=== PATIENT | male | born 1960 | race African-American/Black ===

== ENCOUNTER 2025-02-11 11:22 | Inpatient (IN) | payer BC ==
[2025-02-11] VITALS (15 sets, daily range): BP systolic 131–167; BP diastolic 43–108; TEMP 97.6–98.9; O2SAT 94–100
[~2025-02-11] VITALS: Ht 177.8 cm; Wt 80.7 kg
[2025-02-11 11:51] LABS: BASOPHILS # (AUTO) 0.1 K/UL (0.0-0.2); EOSINOPHILS % (AUTO) 0.3 % (0.0-7.0); HEMATOCRIT 53.2 % (36.7-47.1); HEMOGLOBIN 17.9 g/dL (12.5-16.3); LYMPHOCYTES # (AUTO) 1.1 K/uL (0.8-4.8); LYMPHOCYTES % (AUTO) 12.7 % (20.5-51.5); MEAN CORPUSCULAR HGB CONC 34 g/dL (32.5-36.3); MONOCYTES # (AUTO) 0.7 K/uL (0.1-1.30); MONOCYTES % (AUTO) 8.4 % (0.0-11.0); NEUTROPHILS # (AUTO) 6.9 K/uL (1.8-8.9); NEUTROPHILS % (AUTO) 77.6 % (38.5-71.5); PLATELET COUNT (AUTO) 132 K/uL (152-348); RED BLOOD CELL COUNT(AUTO) 5.61 MIL/uL (4.06-5.63); RED CELL DISTRIBUTION WIDTH 12.7 % (12.1-16.2); WHITE BLOOD COUNT (AUTO) 8.8 K/uL (3.6-10.2)
[2025-02-11] MEDS ORDERED: IV NORMAL SALINE 250 ML IV ONE (11:51)
[2025-02-11] MEDS ORDERED: SWABABLE VALVE TRANSFER SET EA MC ONE (11:51)
[2025-02-11] MEDS ORDERED: IOHEXOL 350 100 ML INFUS..BTL ONE (11:51)
[2025-02-11 12:01] LABS: CALCIUM 9.4 mg/dL (8.5-10.1); CARBON DIOXIDE 25 mmol/L (21-32); CHLORIDE 106 mmol/L (98-107); CREATININE 1.5 mg/dL (0.6-1.3); SODIUM SERUM 142 mmol/L (136-145); UREA NITROGEN, BLOOD 27 mg/dL (7-18)
[2025-02-11] MEDS ORDERED: diphenhydrAMINE 50 MG/1 ML VIAL ONE (12:02)
[2025-02-11] MEDS ORDERED: DEXAMETHASONE SOD PHOSPHATE 4 MG INJ ONE (12:02)
[2025-02-11] MEDS ORDERED: METOCLOPRAMIDE HCL 10 MG/2 ML VIAL ONE (12:02)
[2025-02-11] MEDS ORDERED: ACETAMINOPHEN 500 MG TABLET ONE (12:02)
[2025-02-11] MEDS: diphenhydrAMINE 50 MG/1 ML VIAL IV ONE (12:10)
[2025-02-11] MEDS: DEXAMETHASONE SOD PHOSPHATE 4 MG INJ IV ONE (12:11)
[2025-02-11] MEDS: ACETAMINOPHEN 500 MG TABLET PO ONE (12:11)
[2025-02-11] MEDS: METOCLOPRAMIDE HCL 10 MG/2 ML VIAL IV ONE (12:11)
[2025-02-11] MEDS: IV NORMAL SALINE 1000 ML BAG IV ONE (12:13)
[2025-02-11 12:32] LABS: GLUCOSE 434 mg/dL (74-106)
[2025-02-11 12:33] LABS: DIFFERENTIAL COMMENT 1
[2025-02-11] MEDS ORDERED: ASPIRIN 81 MG TAB.CHEW ONE (13:12)
[2025-02-11] MEDS ORDERED: CLOPIDOGREL 75 MG TABLET ONE (13:12)
[2025-02-11] MEDS ORDERED: HUM INSULIN NPH/REG INSULIN HM 70/30 1000 UNITS/10 ML VIAL SQ ONE (13:13)
[2025-02-11] MEDS: CLOPIDOGREL 75 MG TABLET PO ONE (13:14)
[2025-02-11] MEDS: ASPIRIN 81 MG TAB.CHEW PO ONE (13:14)
[2025-02-11] MEDS: INSULIN REGULAR, HUMAN 1000 UNIT/10 ML VIAL SQ ONE (13:16)
[2025-02-11] MEDS: CALCIUM GLUCONATE IV 1 GM in IV DEXTROSE 5% 50 ML IV ONE (13:30)
[2025-02-11] MEDS ORDERED: ENOXAPARIN SODIUM 40 MG/0.4 ML DISP.SYRIN SQ ONE (14:15)
[2025-02-11] MEDS ORDERED: MAGNESIUM HYDROXIDE 30 ML LIQUID UDC PO PRN (14:15)
[2025-02-11] MEDS ORDERED: ONDANSETRON 4 MG/2 ML VIAL IV PRN (14:15)
[2025-02-11] MEDS ORDERED: REMEDY ESSENTIAL ZINC PASTE 113 GM TP PRN (14:15)
[2025-02-11] MEDS ORDERED: DEXTROSE 50% 50 ML DISP.SYRIN IV PRN (14:15)
[2025-02-11] MEDS: IV NS 1000 ML 1,000 ML IV PRN (15:50)
[2025-02-11] MEDS: BLOOD SUGAR DIAGNOSTIC 1 EACH STRIP VI SCH (16:50)
[2025-02-11] MEDS: ENOXAPARIN SODIUM 30 MG/0.3 ML DISP.SYRIN SUBCUT ONE (16:53)
[2025-02-11] MEDS: INSULIN REGULAR, HUMAN 1000 UNIT/10 ML VIAL SQ PRN (16:54)
[2025-02-11] MEDS: INSULIN REGULAR, HUMAN 300 UNITS/3 ML VIAL SQ PRN (21:27)
[2025-02-12] VITALS (35 sets, daily range): BP systolic 94–154; BP diastolic 50–89; TEMP 96.9–98.5; O2SAT 92–100
[2025-02-12 05:19] LABS: BASOPHILS % (AUTO) 0.4 % (0.0-2.0); HEMATOCRIT 50.1 % (36.7-47.1); HEMOGLOBIN 16.8 g/dL (12.5-16.3); LYMPHOCYTES % (AUTO) 8.7 % (20.5-51.5); MEAN CORPUSCULAR HEMOGLOBIN 31.7 uug (23.8-33.4); MEAN CORPUSCULAR HGB CONC 34 g/dL (32.5-36.3); MEAN CORPUSCULAR VOLUME 94.1 fL (73.0-96.2); MONOCYTES # (AUTO) 0.9 K/uL (0.1-1.30); MONOCYTES % (AUTO) 7.8 % (0.0-11.0); NEUTROPHILS # (AUTO) 9.6 K/uL (1.8-8.9); NEUTROPHILS % (AUTO) 83.1 % (38.5-71.5); PLATELET COUNT (AUTO) 121 K/uL (152-348); RED BLOOD CELL COUNT(AUTO) 5.32 MIL/uL (4.06-5.63); RED CELL DISTRIBUTION WIDTH 12.8 % (12.1-16.2); WHITE BLOOD COUNT (AUTO) 11.5 K/uL (3.6-10.2)
[2025-02-12 05:34] LABS: CALCIUM 8.6 mg/dL (8.5-10.1); CREATININE 1.1 mg/dL (0.6-1.3); MAGNESIUM 1.9 mg/dL (1.8-2.4); PHOSPHOROUS 4.3 mg/dL (2.5-4.9); POTASSIUM 4.6 mmol/L (3.5-5.1)
[2025-02-12] MEDS: ACETAMINOPHEN 325 MG TABLET PO PRN (10:33)
[2025-02-12] MEDS ORDERED: DULA1.5P SQ (10:37)
[2025-02-12] MEDS ORDERED: LISI20TA30 PO (10:37)
[2025-02-12] MEDS ORDERED: RIVA20TA PO (10:37)
[2025-02-12] MEDS ORDERED: METO-356 PO (10:37)
[2025-02-12] MEDS ORDERED: ROSU20TA2 PO (10:37)
[2025-02-12] MEDS ORDERED: SACU1TAB PO (10:38)
[2025-02-12] MEDS ORDERED: HEPARIN SODIUM,PORCINE 1,000 UNITS/ML VIAL ONE (15:36)
[2025-02-12] MEDS ORDERED: HEPARIN/NS 500 ML ONE (15:36)
[2025-02-12] MEDS ORDERED: BUPIVACAINE 0.25% 30 ML VIAL ONE (15:37)
[2025-02-12 15:55] LABS: THYROID STIMULATING HORMONE 0.318 mIU/mL (0.358-3.740)
[2025-02-12] MEDS ORDERED: MIDAZOLAM HCL 2 MG/2 ML VIAL ONE (16:39)
[2025-02-12] MEDS ORDERED: PROPOFOL 200 MG/20 ML BOTTLE ONE (16:45)
[2025-02-12] MEDS ORDERED: ACETAMINOPHEN/CODEINE 300-30 MG TABLET PO PRN (19:15)
[2025-02-12] MEDS: TRAMADOL HCL 50 MG TABLET PO PRN (22:05)
[2025-02-13] VITALS (23 sets, daily range): BP systolic 130–153; BP diastolic 68–95; TEMP 98.4–99.7; O2SAT 92–100
[2025-02-13] MEDS: CEFAZOLIN 2 G in IV DEXTROSE 5% 100 ML IV SCH (01:26)
[2025-02-13] MEDS ORDERED: RIVA10TA PO (09:21)
[2025-02-13] MEDS ORDERED: RIVAROXABAN 10 MG TABLET PO SCH (18:00)
[2025-02-17 02:08] LABS: METHYLMALONIC ACID 443 nmol/L (0-378)
== END 2025-02-13 14:08 | disposition home or self-care (01) | DRG 40 ==
LOC: ER 11:22 → EDBD 11:22 → CCU 15:45 → TELE3 02-12 16:24 → CCU 02-12 17:15
PROVIDERS: ADMIT Internal Medicine; ATTEND Internal Medicine
PROC: 02HK3JZ Insertion of Pacemaker Lead into Right Ventricle, Percutaneous Approach (ICD-10-PCS; 2025-02-12)
PROC: 0JH605Z Insertion of Pacemaker, Single Chamber Rate Responsive into Chest Subcutaneous Tissue and Fascia, Open Approach (ICD-10-PCS; principal; 2025-02-12 16:00)
DX: I63.9 Cerebral infarction, unspecified (principal); N17.0 Acute kidney failure with tubular necrosis; I48.20 Chronic atrial fibrillation, unspecified; I48.92 Unspecified atrial flutter; I44.2 Atrioventricular block, complete; H53.9 Unspecified visual disturbance; R29.701 NIHSS score 1; I11.9 Hypertensive heart disease without heart failure; I70.0 Atherosclerosis of aorta; T45.516A Underdosing of anticoagulants, initial encounter; Y92.89 Other specified places as the place of occurrence of the external cause; H54.61 Unqualified visual loss, right eye, normal vision left eye; E78.5 Hyperlipidemia, unspecified; E11.9 Type 2 diabetes mellitus without complications; Z91.128 Patient's intentional underdosing of medication regimen for other reason
CPT/HCPCS: 36415; 70450; 70496; 71045; 83735; 83921; 84100; 84443; 84484; 85025; 85730; 93005; 93307; A4606; A4663; A9150; G0378; J0612; J0690; J1100; J1200; J1644; J1650; J1815; J2250; J2765; J3490; J7040; Q9967